=== PATIENT | male | born 1990 | race Two or more races ===

== ENCOUNTER 2025-05-26 02:57 | Emergency (ER) | payer SELFPAY ==
[~2025-05-26] VITALS: Ht 190.5 cm; Wt 80.2 kg
[2025-05-26 02:59] VITALS: BP 162/102; PULSE 110; RESP 20; TEMP 98.5; O2SAT 100
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
[2025-05-26] MEDS ORDERED: OXYCODONE W/ ACETAMINOPHEN 5/325MG TABLET PO ONE (03:15)
[2025-05-26] MEDS: HYDROcodone-ACET 10/325MG TAB PO ONE (03:27)
[2025-05-26] MEDS: KETOROLAC TROMETH 60MG/2ML VIAL IM ONE (03:33)
== END 2025-05-26 03:42 | disposition home or self-care (01) ==
LOC: ER 02:57
DX: M54.12 Radiculopathy, cervical region (principal); V89.2XXA Person injured in unspecified motor-vehicle accident, traffic, initial encounter; Y93.89 Activity, other specified; Y92.410 Unspecified street and highway as the place of occurrence of the external cause; Y99.8 Other external cause status
CPT/HCPCS: J1100; J1885